=== PATIENT | female | born 1985 | race Caucasian/White ===

== ENCOUNTER → 2019-10-02 16:22 | Outpatient (CLI) | payer BC, SELFPAY ==
[2019-10-02 16:43] LABS: Absolute Lymphocyte Count 2.24 X10^3/uL (0.83-4.51); Absolute Neutrophil Count 3.8 X10^3/uL (2.0-7.7); Basophil# 0.02 X10^3/uL; Basophil% 0.3 % (0-1); Eosinophil# 0.32 X10^3/uL; Eosinophils% 4.7 % (0-5); Hematocrit 37.7 % (37-47); Hemoglobin 12.9 g/dL (12.0-15.0); Lymphocyte # 2.24 X10^3/ul (4.0); Mean Corp Hgb Conc 34.2 g/dL (32-36); Mean Corpuscular Hgb 30.7 pg (27.0-32.0); Mean Corpuscular Volume 89.8 fL (81-99); Mean Platelet Vol. 10.8 fl (6.2-12.0); Monocyte# 0.43 X10^3/uL; Monocyte% 6.3 % (0-10); NRBC Flagged by Analyzer 0 % (0-5); Neutrophil # 3.76 X10^3/uL (2.7-7.7); Neutrophil % 55.4 % (47-70); Platelet Count 182 K/mm3 (150-450); RBC Distribution Width CV 12.1 % (11.6-14.6); RBC Distribution Width SD 39.5 fl (35.1-43.9); White Blood Count 6.8 K/mm3 (4.4-11.0)
[2019-10-02 17:04] LABS: ALB/GLOB Ratio 1.1 RATIO (0.9-2.4); AST(SGOT) 23 U/L (15-37); Alanine Aminotransfer ALT/SGPT 29 U/L (13-56); Alkaline Phosphatase 51 U/L (45-117); Anion Gap 7 (5-15); BUN 12 mg/dL (7-18); BUN/Creat Ratio 14.2 RATIO (10-20); Calcium,Total 8.8 mg/dL (8.5-10.1); Chloride 107 mmol/L (98-107); Creatinine, Serum 0.85 mg/dL (0.55-1.02); EST Glomerular Filtration Rate 83 mL/min (>60); Est Glom Filt Rate - Afr Amer 100 mL/min (>60); Globulin 3.6 g/dL (2.2-4.2); Glucose 145 mg/dL (74-106); Potassium 3.7 mmol/L (3.5-5.1); Protein, Total 7.6 g/dL (6.4-8.2); Sodium Level 141 mmol/L (136-145); T4 Total, Thyroxin 8.2 ug/dL (4.8-13.9); Thyroid Stim Hormone (TSH) 1.13 uIU/mL (0.358-3.74)
== END ==
PROVIDERS: Referring Provider Otolaryngology Otolaryngology/Facial Plastic Surgery; Visit Provider Otolaryngology Otolaryngology/Facial Plastic Surgery
DX: J20.9 Acute bronchitis, unspecified (principal); J32.9 Chronic sinusitis, unspecified; J03.91 Acute recurrent tonsillitis, unspecified; R53.83 Other fatigue; R63.5 Abnormal weight gain
CPT/HCPCS: 36415; 80053; 84436; 84443; 85025; 87070; 87077